=== PATIENT | male | born 1975 | race Caucasian/White ===

== ENCOUNTER 2016-08-06 02:15 | Emergency (ER) | payer SELFPAY ==
[~2016-08-06] VITALS: Ht 177.8 cm; Wt 83.9 kg
--- NOTE | 2016-08-06 02:15 | NUR ---
Patient to [facility] for evaluation. Side rails up. Report given to LASHON LOGAN.
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
[2016-08-06 02:23] VITALS: BP 161/89; PULSE 102; RESP 18; TEMP 98.7; O2SAT 98
--- NOTE | 2016-08-06 02:39 | NUR ---
ER Dr. Dawkins at bedside examining patient.
[2016-08-06 03:15] VITALS: BP 147/87; PULSE 98; RESP 18; TEMP 98.7; O2SAT 98
--- NOTE | 2016-08-06 03:15 | NUR ---
Patient given written and verbal discharge instructions and verbalizes understanding. ER MD Dr. Dawkins discussed with patient the results and treatment provided. Patient in stable condition. ID arm band removed. Patient educated on pain management and to follow up with PMD. Pain Scale 2/10. Opportunity for questions provided and answered.
== END 2016-08-06 03:15 ==
LOC: SED 02:15
DX: S66.811A Strain of other specified muscles, fascia and tendons at wrist and hand level, right hand, initial encounter (principal); M25.572 Pain in left ankle and joints of left foot; V29.9XXA Motorcycle rider (driver) (passenger) injured in unspecified traffic accident, initial encounter; Y93.89 Activity, other specified; Y92.89 Other specified places as the place of occurrence of the external cause; Y99.8 Other external cause status
CPT/HCPCS: 99284